=== PATIENT | female | born 1950 | race African-American/Black ===

== ENCOUNTER 2016-11-13 23:17 | Inpatient (IN) | payer MEDICARE, MEDICAID ==
[~2016-11-13] VITALS: Ht 162.6 cm; Wt 72.1 kg
[2016-11-13] MEDS ORDERED: SODIUM CHLORIDE 0.9% 1,000 ML IV ONE (23:45)
[2016-11-13 23:48] LABS: BASOPHILS % 0.8 % (0.0-2.0); EOSINOPHILS % 0.8 % (0.0-5.0); HEMATOCRIT. 30.6 % (36.0-48.0); HEMOGLOBIN. 10.1 g/dL (12.0-16.0); LYMPHOCYTES % 17.2 % (20.0-50.0); MEAN CORPUSCULAR HEMOGLOBIN 27.5 pg (28.0-32.0); MEAN CORPUSCULAR VOLUME 83.6 fL (81.0-99.0); MEAN PLATELET VOLUME 6.8 fl (7.4-10.4); MONOCYTES % 9.3 % (2.0-8.0); NEUTROPHILS % 71.9 % (40.0-76.0); PLATELET 241 x1000/uL (130-400); RED BLOOD CELL COUNT 3.66 mill/uL (4.2-5.4); RED CELL DISTRIBUTION WIDTH 13.9 % (11.6-14.6)
[2016-11-13 23:55] LABS: CHLORIDE 87 mEq/L (98-107)
[2016-11-13 23:57] LABS: INR 1.2
[2016-11-14] VITALS (22 sets, daily range): BP systolic 135–196; BP diastolic 78–117
[2016-11-14 00:03] LABS: CARBON DIOXIDE 29 mEq/L (21-32); ETHANOL BLOOD < 10 mg/dL
[2016-11-14 01:57] LABS: CLARITY URINE CLEAR (CLEAR); COLOR URINE YELLOW (YELLOW); GLUCOSE URINE NEGATIVE (NEGATIVE); KETONES URINE 1+ (NEGATIVE); LEUKOCYTE ESTERASE URINE NEGATIVE (NEGATIVE); NITRITE URINE NEGATIVE (NEGATIVE); OCCULT BLOOD URINE NEGATIVE (NEGATIVE); PROTEIN URINE NEGATIVE (NEGATIVE)
[2016-11-14 02:07] LABS: *AMPHETAMINES SCREEN URINE NEGATIVE (NEGATIVE); *BARBITURATES SCREEN URINE NEGATIVE (NEGATIVE); *BENZODIAZEPINES SCREEN URINE NEGATIVE (NEGATIVE); *COCAINE SCREEN URINE NEGATIVE (NEGATIVE); CANNABINOID URINE SCREEN NEGATIVE (NEGATIVE); METHADONE URINE SCREEN NEGATIVE (NEGATIVE); OPIATES URINE SCREEN PRESUMTIVE POSITIVE (NEGATIVE); PHENCYCLIDINE URINE SCREEN NEGATIVE (NEGATIVE)
[2016-11-14] MEDS ORDERED: SODIUM CHLORIDE 0.9% 1,000 ML IV ONE (02:15)
[2016-11-14] MEDS ORDERED: SODIUM CHLORIDE 0.9% 1,000 ML IV SCH (02:15)
[2016-11-14] MEDS ORDERED: IPRATROPIUM/ALBUTEROL 0.5-3(2.5)MG/3ML NEB INH PRN (07:45)
[2016-11-14] MEDS ORDERED: ENALAPRIL 0.625 MG in DEXTROSE 5% WATER 49.5 ML IV PRN (07:45)
[2016-11-14] MEDS: ENALAPRIL 1.25MG/ML VIAL 1ML IV PRN ×3 (08:40→22:17)
[2016-11-14 08:54] LABS: AMMONIA < 10 uMol/L (<32)
[2016-11-14] MEDS ORDERED: PANTOPRAZOLE SODIUM 40 MG/VIAL IV SCH (09:00)
[2016-11-14 10:59] LABS: SODIUM URINE RANDOM 137 mEq/L
[2016-11-14] MEDS ORDERED: DEXTROSE 50% WATER 50ML SYRINGE IV PRN (13:15)
[2016-11-14] MEDS: DEXT 5%/0.9% NACL 1,000 ML IV SCH (13:45)
[2016-11-14] MEDS ORDERED: BRIM15DR2 EACHEYE (15:12)
[2016-11-14] MEDS ORDERED: LORA10TA7 PO (15:12)
[2016-11-14] MEDS ORDERED: NAPR-1164 PO (15:12)
[2016-11-14] MEDS ORDERED: LORA0.5T2 PO (15:12)
[2016-11-14] MEDS ORDERED: METO25TA6 PO (15:12)
[2016-11-14] MEDS ORDERED: DEXL60CA3 PO (15:13)
[2016-11-14] MEDS ORDERED: IBUP-2028 PO (15:15)
[2016-11-14] MEDS ORDERED: LOSA50TA20 PO (15:19)
[2016-11-14] MEDS ORDERED: TEMA15CA PO (15:20)
[2016-11-14] MEDS ORDERED: BENZ0.5T3 PO (15:21)
[2016-11-14] MEDS ORDERED: RISP1 PO (15:22)
[2016-11-14] MEDS ORDERED: TOPI50TA24 PO (15:23)
[2016-11-14] MEDS: BLOOD SUGAR DIAGNOSTIC STRIP TEST SCH ×2 (16:50→21:00)
[2016-11-14] MEDS: INSULIN LISPRO 100 UNITS/ML SUBCUT SCH ×2 (17:20→21:00)
[2016-11-14] MEDS ORDERED: METOPROLOL TARTRATE 25MG TABLET PO NR (18:45)
[2016-11-14] MEDS: METOPROLOL TARTRATE 25MG TABLET PO SCH (21:00)
[2016-11-15] VITALS (20 sets, daily range): BP systolic 121–191; BP diastolic 70–107
[2016-11-15] MEDS: DEXT 5%/0.9% NACL 1,000 ML IV SCH ×2 (01:24→16:44)
[2016-11-15] MEDS: HYDRALAZINE HCL 25MG TABLET PO SCH ×3 (05:12→22:33)
[2016-11-15] MEDS: INSULIN LISPRO 100 UNITS/ML SUBCUT SCH ×4 (07:20→20:06)
[2016-11-15 07:24] LABS: BASOPHILS % 0.8 % (0.0-2.0); EOSINOPHILS % 0.5 % (0.0-5.0); HEMATOCRIT. 29.3 % (36.0-48.0); HEMOGLOBIN. 9.7 g/dL (12.0-16.0); LYMPHOCYTES % 18.2 % (20.0-50.0); MEAN CORPUSCULAR HEMOGLOBIN 27.3 pg (28.0-32.0); MEAN CORPUSCULAR VOLUME 82.7 fL (81.0-99.0); MEAN PLATELET VOLUME 7.9 fl (7.4-10.4); MONOCYTES % 11.4 % (2.0-8.0); NEUTROPHILS % 69.1 % (40.0-76.0); PLATELET 212 x1000/uL (130-400); RED BLOOD CELL COUNT 3.55 mill/uL (4.2-5.4); RED CELL DISTRIBUTION WIDTH 14.5 % (11.6-14.6)
[2016-11-15] MEDS: BLOOD SUGAR DIAGNOSTIC STRIP TEST SCH ×4 (07:40→20:06)
[2016-11-15 07:43] LABS: CARBON DIOXIDE 27 mEq/L (21-32); CHLORIDE 92 mEq/L (98-107); PHOSPHORUS 2.4 mg/dL (2.5-4.9)
[2016-11-15] MEDS: METOPROLOL TARTRATE 25MG TABLET PO SCH ×2 (07:55→20:04)
[2016-11-15] MEDS: FAMOTIDINE 20MG/2ML VIAL IV SCH (07:55)
[2016-11-15] MEDS: ENALAPRIL 1.25MG/ML VIAL 1ML IV PRN (07:56)
[2016-11-15] MEDS ORDERED: MAGNESIUM 2 G PREMIX 50 ML IV NR (10:00)
[2016-11-15] MEDS ORDERED: POTASSIUM CHLORIDE INJ 60 MEQ in DEXT 5% WATER 500 ML IV NR (10:00)
[2016-11-15] MEDS ORDERED: SODIUM PHOS,M-BASIC-D-BASIC 15 MM in DEXT 5% WATER 245 ML IV NR (10:00)
[2016-11-15] MEDS: LOSARTAN POTASSIUM 50 MG TABLET PO SCH (10:47)
[2016-11-16] VITALS (13 sets, daily range): BP systolic 105–163; BP diastolic 47–105
[2016-11-16] MEDS: HYDRALAZINE HCL 25MG TABLET PO SCH ×3 (06:09→22:30)
[2016-11-16] MEDS: DEXT 5%/0.9% NACL 1,000 ML IV SCH ×2 (06:09→21:11)
[2016-11-16] MEDS: BLOOD SUGAR DIAGNOSTIC STRIP TEST SCH ×4 (06:11→20:55)
[2016-11-16] MEDS: INSULIN LISPRO 100 UNITS/ML SUBCUT SCH ×4 (07:20→20:55)
[2016-11-16 07:46] LABS: EOSINOPHILS % 1.2 % (0.0-5.0); HEMATOCRIT. 25.8 % (36.0-48.0); HEMOGLOBIN. 8.3 g/dL (12.0-16.0); LYMPHOCYTES % 17.4 % (20.0-50.0); MEAN CORPUSCULAR VOLUME 84.1 fL (81.0-99.0); MEAN PLATELET VOLUME 7.9 fl (7.4-10.4); MONOCYTES % 13.8 % (2.0-8.0); NEUTROPHILS % 66.6 % (40.0-76.0); PLATELET 227 x1000/uL (130-400); RED BLOOD CELL COUNT 3.06 mill/uL (4.2-5.4); RED CELL DISTRIBUTION WIDTH 14.3 % (11.6-14.6)
[2016-11-16 08:30] LABS: CARBON DIOXIDE 24 mEq/L (21-32); CHLORIDE 98 mEq/L (98-107)
[2016-11-16] MEDS: FAMOTIDINE 20MG/2ML VIAL IV SCH (08:38)
[2016-11-16] MEDS: METOPROLOL TARTRATE 25MG TABLET PO SCH ×2 (08:39→21:01)
[2016-11-16] MEDS: LOSARTAN POTASSIUM 50 MG TABLET PO SCH (08:39)
[2016-11-16] MEDS ORDERED: POTASSIUM CHLORIDE 20MEQ TABLET SR PO NR (12:30)
[2016-11-16] MEDS: FERROUS SULFATE 300MG/5ML UDC PO SCH ×2 (13:41→17:25)
[2016-11-16 13:43] LABS: HEMATOCRIT 25.8 % (36.0-48.0); HEMOGLOBIN 8.5 g/dL (12.0-16.0)
[2016-11-16] MEDS: ASCORBIC ACID 500 MG TABLET PO SCH (21:01)
[2016-11-16] MEDS: TRAMADOL 50MG TABLET PO PRN (21:02)
[2016-11-16] MEDS: ONDANSETRON HCL 4MG/2ML VIAL IV PRN (21:11)
[2016-11-17] VITALS: BP 145/73
[2016-11-17 04:00] VITALS: BP 166/87
[2016-11-17] MEDS: BLOOD SUGAR DIAGNOSTIC STRIP TEST SCH ×4 (06:09→21:53)
[2016-11-17] MEDS: HYDRALAZINE HCL 25MG TABLET PO SCH ×3 (06:10→21:56)
[2016-11-17 06:21] LABS: BASOPHILS % 1.4 % (0.0-2.0); EOSINOPHILS % 2.6 % (0.0-5.0); HEMATOCRIT. 23.9 % (36.0-48.0); HEMOGLOBIN. 7.8 g/dL (12.0-16.0); MEAN CORPUSCULAR HEMOGLOBIN 27.6 pg (28.0-32.0); MEAN CORPUSCULAR VOLUME 84.9 fL (81.0-99.0); MEAN PLATELET VOLUME 7.7 fl (7.4-10.4); MONOCYTES % 14.1 % (2.0-8.0); NEUTROPHILS % 55.9 % (40.0-76.0); PLATELET 212 x1000/uL (130-400); RED BLOOD CELL COUNT 2.82 mill/uL (4.2-5.4); RED CELL DISTRIBUTION WIDTH 14.8 % (11.6-14.6)
[2016-11-17 06:55] LABS: CARBON DIOXIDE 24 mEq/L (21-32); CHLORIDE 102 mEq/L (98-107)
[2016-11-17] MEDS: INSULIN LISPRO 100 UNITS/ML SUBCUT SCH ×4 (07:50→21:00)
[2016-11-17 07:57] VITALS: BP 138/68
[2016-11-17] MEDS: ONDANSETRON HCL 4MG/2ML VIAL IV PRN (09:11)
[2016-11-17] MEDS: FAMOTIDINE 20MG/2ML VIAL IV SCH (09:11)
[2016-11-17] MEDS: FERROUS SULFATE 300MG/5ML UDC PO SCH ×3 (10:05→17:33)
[2016-11-17] MEDS: LOSARTAN POTASSIUM 50 MG TABLET PO SCH (10:05)
[2016-11-17] MEDS: METOPROLOL TARTRATE 25MG TABLET PO SCH ×2 (10:05→21:58)
[2016-11-17] MEDS: ASCORBIC ACID 500 MG TABLET PO SCH ×2 (10:05→21:56)
[2016-11-17] MEDS ORDERED: POTASSIUM CHLORIDE 20MEQ TABLET SR PO SCH (11:15)
[2016-11-17 11:57] VITALS: BP 143/77
[2016-11-17] MEDS ORDERED: MAGNESIUM 2 G PREMIX 50 ML IV NR (12:30)
[2016-11-17 16:00] VITALS: BP 164/89
[2016-11-17] MEDS: TRAMADOL 50MG TABLET PO PRN (17:34)
[2016-11-17 20:00] VITALS: BP 176/99
[2016-11-18] VITALS (23 sets, daily range): BP systolic 124–216; BP diastolic 72–117
[2016-11-18] MEDS: HYDRALAZINE HCL 25MG TABLET PO SCH ×3 (06:58→22:55)
[2016-11-18] MEDS: BLOOD SUGAR DIAGNOSTIC STRIP TEST SCH ×4 (07:20→21:56)
[2016-11-18 07:34] LABS: BASOPHILS % 1.1 % (0.0-2.0); EOSINOPHILS % 1.9 % (0.0-5.0); HEMATOCRIT. 31.5 % (36.0-48.0); HEMOGLOBIN. 10.2 g/dL (12.0-16.0); MEAN CORPUSCULAR VOLUME 86.1 fL (81.0-99.0); MEAN PLATELET VOLUME 7.6 fl (7.4-10.4); MONOCYTES % 13.1 % (2.0-8.0); NEUTROPHILS % 63.9 % (40.0-76.0); PLATELET 233 x1000/uL (130-400); RED BLOOD CELL COUNT 3.66 mill/uL (4.2-5.4); RED CELL DISTRIBUTION WIDTH 14.8 % (11.6-14.6)
[2016-11-18] MEDS: INSULIN LISPRO 100 UNITS/ML SUBCUT SCH ×4 (07:50→21:00)
[2016-11-18] MEDS: FERROUS SULFATE 300MG/5ML UDC PO SCH ×4 (07:50→17:40)
[2016-11-18 07:59] LABS: CARBON DIOXIDE 23 mEq/L (21-32); CHLORIDE 100 mEq/L (98-107); PHOSPHORUS 3.3 mg/dL (2.5-4.9)
[2016-11-18] MEDS: ASCORBIC ACID 500 MG TABLET PO SCH ×3 (09:00→20:51)
[2016-11-18] MEDS: ONDANSETRON HCL 4MG/2ML VIAL IV PRN (09:00)
[2016-11-18] MEDS: LOSARTAN POTASSIUM 50 MG TABLET PO SCH ×2 (09:00→10:12)
[2016-11-18] MEDS: FAMOTIDINE 20MG/2ML VIAL IV SCH (09:00)
[2016-11-18] MEDS: METOPROLOL TARTRATE 50MG TABLET PO SCH ×3 (09:30→20:51)
[2016-11-18] MEDS ORDERED: MAGNESIUM/ALUMINUM HYDROXIDE/SIMETHICONE 30ML UDC PO PRN (09:45)
[2016-11-18] MEDS: TRAMADOL 50MG TABLET PO PRN ×2 (10:13→20:51)
[2016-11-18] MEDS: ENALAPRIL 1.25MG/ML VIAL 1ML IV PRN (15:04)
[2016-11-18 15:32] LABS: BG BASE EXCESS 0.8 mmol/L (-2.0-2.0); BG CARBOXYHEMOGLOBIN 0.8 % (0.5-1.5); BG HCO3 ACT 26.6 mmol/L (22.0-26.0); BG METHEMOGLOBIN 0.1 % (0.0-1.5); BG OXYHEMOGLOBIN 97.1 % (94.0-97.0); BG PCO2 47.4 mmHg (35.0-45.0); BG PH 7.367 (7.350-7.450); BG PO2 107.3 mmHg (75.0-100.0); BG SAMPLE SITE RIGHT RADIAL; BG TOTAL HEMOGLOBIN 12.1 g/dL (12.0-18.0); BG VENT MODE NASAL CANNULA
[2016-11-18] MEDS ORDERED: CLONIDINE 0.1MG TABLET PO NR (15:58)
[2016-11-18] MEDS ORDERED: MORPHINE SULFATE 4 MG/ML CPJ (NOT FOR IM USE) IV NR (16:41)
[2016-11-18 17:40] LABS: CARBON DIOXIDE 26 mEq/L (21-32); CHLORIDE 97 mEq/L (98-107); TROPONIN I 0.02 ng/mL (0.00-0.04)
[2016-11-18] MEDS ORDERED: MORPHINE SULFATE 4 MG/ML CPJ (NOT FOR IM USE) IV PRN (17:41)
[2016-11-18] MEDS: DEXT 5%/0.45% NACL 1000ML 1,000 ML IV SCH (18:04)
[2016-11-18] MEDS ORDERED: METRONIDAZOLE 500 MG PREMIX 100 ML IV SCH (18:15)
[2016-11-18] MEDS: LEVOFLOXACIN 500MG PREMIX 100 ML IV SCH (20:52)
[2016-11-18] MEDS: METRONIDAZOLE 500MG TABLET PO SCH (22:06)
[2016-11-18] MEDS: AMLODIPINE 5MG TABLET PO SCH (22:09)
[2016-11-19] VITALS (38 sets, daily range): BP systolic 109–169; BP diastolic 59–99
[2016-11-19 06:05] LABS: EOSINOPHILS % 2.3 % (0.0-5.0); HEMATOCRIT. 33.1 % (36.0-48.0); HEMOGLOBIN. 10.7 g/dL (12.0-16.0); LYMPHOCYTES % 20.1 % (20.0-50.0); MEAN CORPUSCULAR HEMOGLOBIN 27.8 pg (28.0-32.0); MEAN CORPUSCULAR VOLUME 85.5 fL (81.0-99.0); MEAN PLATELET VOLUME 7.7 fl (7.4-10.4); MONOCYTES % 12.5 % (2.0-8.0); NEUTROPHILS % 64.1 % (40.0-76.0); PLATELET 253 x1000/uL (130-400); RED BLOOD CELL COUNT 3.87 mill/uL (4.2-5.4); RED CELL DISTRIBUTION WIDTH 14.6 % (11.6-14.6)
[2016-11-19 06:28] LABS: CARBON DIOXIDE 26 mEq/L (21-32); CHLORIDE 97 mEq/L (98-107); PHOSPHORUS 3.4 mg/dL (2.5-4.9)
[2016-11-19] MEDS: METRONIDAZOLE 500MG TABLET PO SCH ×3 (07:06→22:39)
[2016-11-19] MEDS: HYDRALAZINE HCL 25MG TABLET PO SCH ×3 (07:06→22:39)
[2016-11-19] MEDS: BLOOD SUGAR DIAGNOSTIC STRIP TEST SCH ×4 (07:50→22:38)
[2016-11-19] MEDS: INSULIN LISPRO 100 UNITS/ML SUBCUT SCH ×4 (08:20→22:38)
[2016-11-19] MEDS: FERROUS SULFATE 300MG/5ML UDC PO SCH ×3 (08:47→18:23)
[2016-11-19] MEDS: ASCORBIC ACID 500 MG TABLET PO SCH ×2 (09:30→22:39)
[2016-11-19] MEDS: METOPROLOL TARTRATE 50MG TABLET PO SCH ×2 (09:31→20:16)
[2016-11-19] MEDS: FAMOTIDINE 20MG/2ML VIAL IV SCH (09:31)
[2016-11-19] MEDS: AMLODIPINE 5MG TABLET PO SCH ×2 (09:31→20:16)
[2016-11-19] MEDS: LOSARTAN POTASSIUM 50 MG TABLET PO SCH (09:31)
[2016-11-19] MEDS ORDERED: DOCUSATE SODIUM 250MG CAPSULE PO SCH (11:15)
[2016-11-19] MEDS: LACTULOSE 20G/30ML UDC PO PRN (12:56)
[2016-11-19] MEDS ORDERED: SORBITOL 70% SOLN 30ML PO NR ×2 (15:00→20:00)
[2016-11-19] MEDS: DEXT 5%/0.45% NACL 1000ML 1,000 ML IV SCH (18:30)
[2016-11-19] MEDS: LEVOFLOXACIN 500MG PREMIX 100 ML IV SCH (20:16)
[2016-11-20] VITALS (14 sets, daily range): BP systolic 107–167; BP diastolic 59–104
[2016-11-20 06:06] LABS: CARBON DIOXIDE 27 mEq/L (21-32); CHLORIDE 93 mEq/L (98-107)
[2016-11-20 06:13] LABS: BASOPHILS % 0.9 % (0.0-2.0); EOSINOPHILS % 1.9 % (0.0-5.0); HEMATOCRIT. 29.2 % (36.0-48.0); HEMOGLOBIN. 9.7 g/dL (12.0-16.0); LYMPHOCYTES % 18.8 % (20.0-50.0); MEAN CORPUSCULAR HEMOGLOBIN 28.1 pg (28.0-32.0); MEAN CORPUSCULAR VOLUME 84.8 fL (81.0-99.0); MEAN PLATELET VOLUME 7.5 fl (7.4-10.4); MONOCYTES % 14.3 % (2.0-8.0); NEUTROPHILS % 64.1 % (40.0-76.0); PLATELET 217 x1000/uL (130-400); RED BLOOD CELL COUNT 3.45 mill/uL (4.2-5.4); RED CELL DISTRIBUTION WIDTH 14.5 % (11.6-14.6)
[2016-11-20] MEDS: HYDRALAZINE HCL 25MG TABLET PO SCH ×3 (06:38→22:25)
[2016-11-20] MEDS: METRONIDAZOLE 500MG TABLET PO SCH ×3 (06:38→22:25)
[2016-11-20] MEDS: BLOOD SUGAR DIAGNOSTIC STRIP TEST SCH ×4 (06:39→20:26)
[2016-11-20] MEDS ORDERED: POTASSIUM CHLORIDE 20MEQ TABLET SR PO SCH (07:15)
[2016-11-20] MEDS: INSULIN LISPRO 100 UNITS/ML SUBCUT SCH ×4 (07:20→20:26)
[2016-11-20] MEDS: FAMOTIDINE 20MG/2ML VIAL IV SCH (08:55)
[2016-11-20] MEDS: FERROUS SULFATE 300MG/5ML UDC PO SCH ×3 (08:55→17:27)
[2016-11-20] MEDS: DOCUSATE SODIUM SUGAR FREE 100MG/10ML UDC PO SCH ×2 (08:55→09:00)
[2016-11-20] MEDS: LOSARTAN POTASSIUM 50 MG TABLET PO SCH (08:56)
[2016-11-20] MEDS: METOPROLOL TARTRATE 50MG TABLET PO SCH ×2 (08:56→20:18)
[2016-11-20] MEDS: ASCORBIC ACID 500 MG TABLET PO SCH ×2 (08:56→20:17)
[2016-11-20] MEDS: AMLODIPINE 5MG TABLET PO SCH ×2 (08:56→20:18)
[2016-11-20] MEDS: TRAMADOL 50MG TABLET PO PRN (12:58)
[2016-11-20] MEDS ORDERED: MORPHINE SULFATE 2 MG/ML CPJ (NOT FOR IM USE) IV PRN (16:11)
[2016-11-20] MEDS: LEVOFLOXACIN 500MG PREMIX 100 ML IV SCH (20:15)
[2016-11-21] VITALS (18 sets, daily range): BP systolic 101–139; BP diastolic 54–82
[2016-11-21] MEDS: HYDRALAZINE HCL 25MG TABLET PO SCH ×3 (06:00→22:00)
[2016-11-21] MEDS: METRONIDAZOLE 500MG TABLET PO SCH ×3 (06:06→21:33)
[2016-11-21] MEDS: BLOOD SUGAR DIAGNOSTIC STRIP TEST SCH ×4 (06:08→21:55)
[2016-11-21 06:53] LABS: HEMATOCRIT. 28.9 % (36.0-48.0); HEMOGLOBIN. 9.4 g/dL (12.0-16.0); MEAN CORPUSCULAR HEMOGLOBIN 28.1 pg (28.0-32.0); MEAN CORPUSCULAR VOLUME 86.2 fL (81.0-99.0); MEAN PLATELET VOLUME 7.5 fl (7.4-10.4); PLATELET 233 x1000/uL (130-400); RED BLOOD CELL COUNT 3.35 mill/uL (4.2-5.4); RED CELL DISTRIBUTION WIDTH 14.2 % (11.6-14.6)
[2016-11-21 07:12] LABS: CARBON DIOXIDE 30 mEq/L (21-32); CHLORIDE 95 mEq/L (98-107); PHOSPHORUS 2.8 mg/dL (2.5-4.9)
[2016-11-21] MEDS: INSULIN LISPRO 100 UNITS/ML SUBCUT SCH ×4 (07:20→21:00)
[2016-11-21] MEDS: ASCORBIC ACID 500 MG TABLET PO SCH ×2 (08:32→21:34)
[2016-11-21] MEDS: FAMOTIDINE 20MG/2ML VIAL IV SCH (08:32)
[2016-11-21] MEDS: FERROUS SULFATE 300MG/5ML UDC PO SCH ×3 (08:32→17:33)
[2016-11-21] MEDS: AMLODIPINE 5MG TABLET PO SCH ×2 (08:33→21:35)
[2016-11-21] MEDS: LOSARTAN POTASSIUM 50 MG TABLET PO SCH (08:34)
[2016-11-21] MEDS: METOPROLOL TARTRATE 50MG TABLET PO SCH ×2 (08:34→21:35)
[2016-11-21] MEDS: DOCUSATE SODIUM SUGAR FREE 100MG/10ML UDC PO SCH (08:35)
[2016-11-21] MEDS ORDERED: POTASSIUM CHLORIDE 20MEQ TABLET SR PO NR (09:30)
[2016-11-21] MEDS ORDERED: MAGNESIUM 1 G PREMIX 100 ML IV NR (11:00)
[2016-11-21] MEDS: TRAMADOL 50MG TABLET PO PRN (19:07)
[2016-11-21 21:03] LABS: PLATELET ESTIMATE NORMAL
[2016-11-21] MEDS: LEVOFLOXACIN 500MG PREMIX 100 ML IV SCH (21:34)
[2016-11-22] VITALS (11 sets, daily range): BP systolic 102–133; BP diastolic 60–86
[2016-11-22] MEDS: HYDRALAZINE HCL 25MG TABLET PO SCH ×2 (06:02→14:10)
[2016-11-22] MEDS: METRONIDAZOLE 500MG TABLET PO SCH ×2 (06:02→14:10)
[2016-11-22] MEDS: BLOOD SUGAR DIAGNOSTIC STRIP TEST SCH ×3 (06:04→16:33)
[2016-11-22] MEDS: INSULIN LISPRO 100 UNITS/ML SUBCUT SCH ×3 (07:20→16:50)
[2016-11-22] MEDS: AMLODIPINE 5MG TABLET PO SCH (08:31)
[2016-11-22] MEDS: METOPROLOL TARTRATE 50MG TABLET PO SCH (08:32)
[2016-11-22] MEDS: ASCORBIC ACID 500 MG TABLET PO SCH (08:32)
[2016-11-22] MEDS: FERROUS SULFATE 300MG/5ML UDC PO SCH ×3 (08:32→16:33)
[2016-11-22] MEDS: LOSARTAN POTASSIUM 50 MG TABLET PO SCH (08:32)
[2016-11-22] MEDS: ONDANSETRON HCL 4MG/2ML VIAL IV PRN (08:32)
[2016-11-22] MEDS: FAMOTIDINE 20MG/2ML VIAL IV SCH (08:32)
[2016-11-22] MEDS: DOCUSATE SODIUM SUGAR FREE 100MG/10ML UDC PO SCH ×2 (08:32→08:41)
[2016-11-22] MEDS ORDERED: POLYETHYLENE GLYCOL 3350 (17GM) 1 DOSE PACK PO SCH (10:15)
[2016-11-22] MEDS ORDERED: LACTULOSE 20G/30ML UDC PO PRN (10:15)
[2016-11-22 10:17] LABS: HEMATOCRIT. 30.6 % (36.0-48.0); HEMOGLOBIN. 9.9 g/dL (12.0-16.0); MEAN CORPUSCULAR HEMOGLOBIN 27.5 pg (28.0-32.0); MEAN CORPUSCULAR VOLUME 85.3 fL (81.0-99.0); PLATELET 263 x1000/uL (130-400); RED BLOOD CELL COUNT 3.59 mill/uL (4.2-5.4); RED CELL DISTRIBUTION WIDTH 14.3 % (11.6-14.6)
[2016-11-22 10:30] LABS: CARBON DIOXIDE 28 mEq/L (21-32); CHLORIDE 95 mEq/L (98-107)
[2016-11-22] MEDS: LACTULOSE 20G/30ML UDC PO PRN (11:44)
[2016-11-22 18:36] LABS: PLATELET ESTIMATE NORMAL
== END 2016-11-22 17:20 | DRG 177 ==
LOC: ER 23:52 → 3WST 11-14 02:18 → ENRESERV 11-14 03:43 → 6WST 11-16 14:26 → CVICU 11-18 15:38 → 3WST 11-19 20:55
PROVIDERS: ADMIT Family Medicine Adult Medicine; ATTEND Family Medicine Adult Medicine
PROC: 30233N1 Transfusion of Nonautologous Red Blood Cells into Peripheral Vein, Percutaneous Approach (ICD-10-PCS; principal; 2016-11-18)
DX: J69.0 Pneumonitis due to inhalation of food and vomit (principal); G92 Toxic encephalopathy; J96.00 Acute respiratory failure, unspecified whether with hypoxia or hypercapnia; E44.0 Moderate protein-calorie malnutrition; K56.7 Ileus, unspecified; R65.10 Systemic inflammatory response syndrome (SIRS) of non-infectious origin without acute organ dysfunction; E87.1 Hypo-osmolality and hyponatremia; E86.0 Dehydration; D64.9 Anemia, unspecified; K27.9 Peptic ulcer, site unspecified, unspecified as acute or chronic, without hemorrhage or perforation; E11.9 Type 2 diabetes mellitus without complications; E83.42 Hypomagnesemia; E83.39 Other disorders of phosphorus metabolism; E87.6 Hypokalemia; F20.9 Schizophrenia, unspecified; R00.0 Tachycardia, unspecified; H40.9 Unspecified glaucoma; I10 Essential (primary) hypertension; K21.9 Gastro-esophageal reflux disease without esophagitis; Z87.11 Personal history of peptic ulcer disease; Z68.27 Body mass index [BMI] 27.0-27.9, adult
CPT/HCPCS: 36415; 36600; 51702; 70450; 71010; 74000; 76700; 78580; 80048; 80053; 80061; 80305; 81003; 82140; 82270; 82375; 82533; 82728; 82805; 82962; 83540; 83550; 83735; 83930; 83935; 84100; 84300; 84443; 84484; 85014; 85018; 85025; 85610; 86850; 86900; 86920; 87015; 87045; 87427; 87449; 89055; 92610; 93005; 93306; 96360; 96361; 97162; 97166; 99291; A6261; C9113; G0482; J1956; J2270; J2405; J3475; J3480; J3490; J7030; J7042; J7050; J7060; P9016; A4315